=== PATIENT | female | born 1945 | race Caucasian/White ===

== ENCOUNTER → 2016-05-21 | Outpatient (CLI) | payer MEDICARE, OTHER ==
[~2016-05-21] MED LIST: CLARITIN 1010 MG/TAB PO; FISH OIL 1000MG1 CAP PO; FLEXERIL 1010 MG/TAB PO; FLONASE NASAL S16 GM NS; MULTIVITAMIN1 CTB PO; NORCO 325 MG-51 TAB PO; NORCO 325 MG-7.1 TAB PO; OPTIVAR 6 ML 6 M6 ML OP; OSCAL 500 TAB500 MG PO; PROAIR HFA0.09 MG/AC IH; RT ADVAIR 128 DISKUS IH; THEO-24 30300 MG/CAP PO; ZANTAC 150MG T150 MG PO
== END ==
LOC: MC.RAD 09:09
DX: Z12.31 Encounter for screening mammogram for malignant neoplasm of breast (principal); Z80.3 Family history of malignant neoplasm of breast

== ENCOUNTER → 2016-08-28 | Outpatient (CLI) | payer MEDICARE, OTHER ==
[2007-07-22 13:11] VITALS: BP 144/85
[2016-08-28] VITALS (8 sets, daily range): BP systolic 128–154; BP diastolic 73–95; PULSE 76–89
[~2016-08-28] VITALS: Ht 157.5 cm; Wt 59.2 kg
== END ==
LOC: COL.RAD 09:07
DX: D3A.8 Other benign neuroendocrine tumors (principal)
CPT/HCPCS: 18871

== ENCOUNTER → 2017-05-21 | Outpatient (CLI) | payer MEDICARE, OTHER | LOC: MC.RAD 10:57 | DX: Z12.31 Encounter for screening mammogram for malignant neoplasm of breast (principal) ==

== ENCOUNTER → 2019-07-26 | Outpatient (CLI) | payer MEDICARE, OTHER | LOC: MHCPAIN 09:13 | DX: M53.3 Sacrococcygeal disorders, not elsewhere classified (principal); M47.817 Spondylosis without myelopathy or radiculopathy, lumbosacral region | CPT/HCPCS: G0463 ==

== ENCOUNTER → 2019-09-18 | Outpatient (CLI) | payer MEDICARE, OTHER ==
[2007-07-22 13:11] VITALS: BP 144/85
[~2019-09-18] VITALS: Ht 157.5 cm; Wt 55.5 kg
[~2019-09-18] MED LIST changes: +PRESERVISIONLUT IO
[2019-09-18 13:33] VITALS: BP 159/98; PULSE 83
[2019-09-18 14:45] VITALS: BP 152/95; PULSE 81
--- NOTE | 2019-09-18 15:20 | NUR ---
SAGE WAITING IN LOBBY. HANDED OVER PT TO .
== END ==
LOC: COL.RAD 09-15 11:45
DX: C7B.8 Other secondary neuroendocrine tumors (principal); Z85.060 Personal history of malignant carcinoid tumor of small intestine

== ENCOUNTER → 2020-05-24 | Outpatient (CLI) | payer MEDICARE, OTHER | LOC: MC.RAD 08:00 | DX: N64.4 Mastodynia (principal) ==

== ENCOUNTER → 2020-10-28 | Outpatient (CLI) | payer MEDICARE, OTHER ==
[2007-07-22 13:11] VITALS: BP 144/85
[~2020-10-28] VITALS: Ht 157.5 cm; Wt 57.2 kg
[~2020-10-28] MED LIST changes: +ALLEGRA 180MG180 MG PO; -MULTIVITAMIN1 CTB PO; +OMEGA-31 SGL PO; +ONE-A-DAY ESSE1 EACH PO; +[UNRECOGNIZED DRUG - OTHER] SQ
[2020-10-28 09:52] VITALS: BP 158/92; PULSE 82
[2020-10-28 10:55] VITALS: BP 141/93; PULSE 77
== END ==
LOC: COL.RAD 09:30
DX: M51.16 Intervertebral disc disorders with radiculopathy, lumbar region (principal)
CPT/HCPCS: J3301

== ENCOUNTER → 2021-01-06 | Outpatient (CLI) | payer MEDICARE, OTHER ==
[2007-07-22 13:11] VITALS: BP 144/85
[~2021-01-06] VITALS: Ht 157.5 cm; Wt 56.5 kg
[2021-01-06 08:53] VITALS: BP 154/83; PULSE 85; TEMP 98.1
[2021-01-06 10:12] VITALS: BP 144/90; PULSE 84
== END ==
LOC: COL.RAD 08:36
DX: M54.16 Radiculopathy, lumbar region (principal); G96.191 Perineural cyst
CPT/HCPCS: J3301

== ENCOUNTER → 2021-04-03 | Outpatient (CLI) | payer MEDICARE, OTHER ==
[2007-07-22 13:11] VITALS: BP 144/85
[~2021-04-03] VITALS: Ht 157.5 cm; Wt 55.2 kg
[2021-04-03 09:46] VITALS: BP 151/81; PULSE 77; TEMP 97.5
[2021-04-03 11:10] VITALS: BP 139/87; PULSE 69
== END ==
LOC: COL.RAD 09:15
DX: M54.16 Radiculopathy, lumbar region (principal)
CPT/HCPCS: J3301

== ENCOUNTER → 2021-06-11 | Outpatient (CLI) | payer MEDICARE, OTHER ==
[2007-07-22 13:11] VITALS: BP 144/85
[~2021-06-11] VITALS: Ht 157.5 cm; Wt 55.0 kg
[2021-06-11 09:05] VITALS: BP 136/90; PULSE 71; TEMP 97.5
[2021-06-11 09:32] VITALS: BP 153/97; PULSE 79
== END ==
LOC: COL.RAD 06-10 09:00
DX: M54.16 Radiculopathy, lumbar region (principal)
CPT/HCPCS: J3301

== ENCOUNTER 2021-11-07 06:34 | Day surgery (SDC) | payer MEDICARE, OTHER ==
[2007-07-22 13:11] VITALS: BP 144/85
[~2021-11-07] VITALS: Ht 154.9 cm; Wt 54.6 kg
[2021-11-07 07:28] VITALS: BP 141/79; PULSE 79; TEMP 97.2
[2021-11-07] MEDS ORDERED: FOSAMAX 70MG TA70 MG PO (08:17)
[2021-11-07] MEDS ORDERED: MASON NATURAL2000 IU PO (08:21)
[2021-11-07] MEDS ORDERED: MUCUS RELIEF200 MG PO (08:21)
[2021-11-07] MEDS ORDERED: KRILL OIL 5001 EACH PO (08:22)
[2021-11-07] MEDS ORDERED: PRESERVISION1 SGL PO (08:22)
[2021-11-07] MEDS ORDERED: PRILOTC PO (08:23)
[2021-11-07 10:16] VITALS: BP 111/60; PULSE 85
--- NOTE | 2021-11-07 10:16 | NUR ---
Patient returns to room 2 per cart from surgery and is awake and alert. Briefs in place and folded 4x4 clean and dry covering hemrrhoidectomy. IV fluids infusing and site is free of redness. Denies pain or nausea. Siderails up x2 and call light in reach.
[2021-11-07] MEDS ORDERED: NORCO 325 MG-51 TAB PO (10:23)
[2021-11-07 10:31] VITALS: BP 114/76; PULSE 64
--- NOTE | 2021-11-07 10:31 | NUR ---
Eating crackers and drinking water. Denies pain.
[2021-11-07 10:45] VITALS: BP 123/77; PULSE 61
--- NOTE | 2021-11-07 10:45 | NUR ---
Tolerates snack and continues to deny pain. IV discontinued and site is free of redness or swelling.
[2021-11-07 11:00] VITALS: BP 155/77; PULSE 70
--- NOTE | 2021-11-07 11:00 | NUR ---
Room air sats 99%. Continues to deny pain or nausea. Up ambulatory in the room. Dresses self. Dressing remains clean and dry.
--- NOTE | 2021-11-07 11:25 | NUR ---
Patient dismissed to home driven by spouse and taken to the vehicle per wheelchair and assisted into car with instructions in hand.
== END 2021-11-07 11:25 | disposition home or self-care (01) ==
LOC: SDCO 06:34
DX: K64.2 Third degree hemorrhoids (principal); K64.8 Other hemorrhoids; C7A.011 Malignant carcinoid tumor of the jejunum; C77.2 Secondary and unspecified malignant neoplasm of intra-abdominal lymph nodes
CPT/HCPCS: J0690; J2405; J2704; J3010; J7120

== ENCOUNTER → 2022-07-08 | Outpatient (CLI) | payer MEDICARE, OTHER ==
[~2022-07-08] MED LIST changes: +FOSAMAX 70MG TA70 MG PO; +KRILL OIL 5001 EACH PO; +MASON NATURAL2000 IU PO; +MUCUS RELIEF200 MG PO; +PRESERVISION1 SGL PO; +PRILOTC PO
== END ==
LOC: MHCPAIN 13:13
DX: M54.50 Low back pain, unspecified (principal); M53.3 Sacrococcygeal disorders, not elsewhere classified; M41.80 Other forms of scoliosis, site unspecified; M47.896 Other spondylosis, lumbar region; M51.36 Other intervertebral disc degeneration, lumbar region
CPT/HCPCS: G0463

== ENCOUNTER → 2022-07-09 | Outpatient (CLI) | payer MEDICARE, OTHER | LOC: MHCPAIN 14:11 | DX: M54.50 Low back pain, unspecified (principal); M53.3 Sacrococcygeal disorders, not elsewhere classified; M47.898 Other spondylosis, sacral and sacrococcygeal region | CPT/HCPCS: J3301; Q9967 ==

== ENCOUNTER → 2022-08-05 | Outpatient (CLI) | payer MEDICARE, OTHER | LOC: MHCPAIN 11:16 | DX: M54.50 Low back pain, unspecified (principal); M41.80 Other forms of scoliosis, site unspecified; M47.816 Spondylosis without myelopathy or radiculopathy, lumbar region; M53.3 Sacrococcygeal disorders, not elsewhere classified; M51.36 Other intervertebral disc degeneration, lumbar region | CPT/HCPCS: G0463 ==

== ENCOUNTER → 2022-09-02 | Outpatient (CLI) | payer MEDICARE, OTHER | LOC: MHCPAIN 10:53 | DX: M54.50 Low back pain, unspecified (principal); M47.816 Spondylosis without myelopathy or radiculopathy, lumbar region; M41.80 Other forms of scoliosis, site unspecified; M51.36 Other intervertebral disc degeneration, lumbar region | CPT/HCPCS: G0463 ==

== ENCOUNTER → 2023-05-18 | Outpatient (CLI) | payer MEDICARE, OTHER ==
[~2023-05-18] MED LIST changes: +LYRICA 25MG CAP25 MG PO; +MOBIC15 MG PO; +THEO-DUR 3300 MG/TAB PO
== END ==
LOC: MHCPAIN 13:27
DX: M54.50 Low back pain, unspecified (principal); M47.816 Spondylosis without myelopathy or radiculopathy, lumbar region; M53.3 Sacrococcygeal disorders, not elsewhere classified; M41.80 Other forms of scoliosis, site unspecified
CPT/HCPCS: G0463

== ENCOUNTER → 2023-08-03 | Outpatient (CLI) | payer MEDICARE, OTHER | LOC: MHCPAIN 14:30 | DX: M54.50 Low back pain, unspecified (principal); M53.3 Sacrococcygeal disorders, not elsewhere classified; M41.80 Other forms of scoliosis, site unspecified | CPT/HCPCS: G0463 ==

== ENCOUNTER → 2023-10-06 | Outpatient (CLI) | payer MEDICARE, OTHER ==
[~2023-10-06] MED LIST changes: +Lidocaine PF 1% (10 MG/ML) 5 ML VIAL ONE; +Triamcinolone 40 MG/ML 1 ML VIAL ONE
== END ==
LOC: MHCPAIN 13:30
DX: M79.18 Myalgia, other site (principal); M54.50 Low back pain, unspecified; M53.3 Sacrococcygeal disorders, not elsewhere classified; M41.86 Other forms of scoliosis, lumbar region
CPT/HCPCS: G0463; J3301